=== PATIENT | male | born 1945 | race Caucasian/White ===

== ENCOUNTER 2024-08-01 07:16 | Emergency (ER) | payer MEDICARE, SELFPAY ==
[2024-08-01] VITALS (8 sets, daily range): BP systolic 138–171; BP diastolic 74–80; PULSE 74–84; RESP 10–17; TEMP 36.8; O2SAT 96–100
--- NOTE | ~2024-08-01 | XR_ITS ---
Portable chest x-ray Comparison: None Clinical History: Dizziness Findings: Lungs are clear, without focal consolidation or pleural effusion. Cardiomediastinal silho uette is unremarkable. Bones and soft tissues are unremarkable. Impression: Normal chest. Reviewed, dictated and finalized at location M. Impression: Normal chest.
--- NOTE | ~2024-08-01 | CT_ITS ---
Non-contrast Head CT History: Dizziness Technique: Axial non-contrast imaging of the brain was performed. Dose reduction technique was used on this scan by utilizing automated exposure control and iterative reconstruction technique. The dose -length product (DLP) was 681.00 mGy-cm. Findings: There is no evidence of intracranial hemorrhage, mass lesion, or acute infarct. Brain par enchyma appears normal. The ventricles and subarachnoid spaces are normal in size. The calvarium ap pears normal. The visualized paranasal sinuses and mastoid air cells are clear. Impression: No significant abnormality seen. Reviewed, dictated and finalized at location . Impression: No significant abnormality seen.
--- NOTE | 2024-08-01 07:20 | ED_ITS ---
HPI - General Adult General Chief complaint: Weakness Stated complaint: weakness, dizzy Time Seen by Provider: 08/01/24 07:19 Source: patient and EMS Mode of arrival: EMS Limitations: no limitations History of Present Illness HPI narrative: 79 years old white male lives alone came to the ED from home by ambulance because cutting get out of bed this morning because everything was spinning associated with nausea. Denied having similar symptoms. History of diabetes hypertension hyperlipidemia currently on baby aspirin once a day, does not smoke or drink or use drugs. Patient denies any fever, chills, chest pain, shortness of breath, or focal neuro deficit. Patient did not take his morning medicine prior to arrival Related Data Allergies Allergy/AdvReac Type Severity Reaction Status Date / Time No Known Allergies Allergy Verified 08/01/24 07:50 Review of Systems 2 Review of Systems: All systems reviewed & are unremarkable except as noted in HPI and below Exam 2 Narrative: General appearance: Well-developed, well-nourished Skin: Normal color Head: Normocephalic, nontraumatic Eyes: Clear conjunctiva ENT: Oropharynx normal, ears normal, nose normal Neck: Supple, nontender Chest and respiratory: Airway patent, no respiratory distress, no accessory muscle use Heart: Regular rate/rhythm Abdomen: Soft, nontender, no organomegaly, quiet bowel sounds Vascular: Normal peripheral pulses, normal capillary refill. Musculoskeletal: Normal range of motion, nontender back Neurologic: Alert and oriented ?3, [employer] is normal as tested, no gross motor deficit Course Vital Signs Vital signs: Vital Signs Temperature 36.8 C 08/01/24 07:22 Pulse Rate 81 08/01/24 07:22 Respiratory Rate 16 08/01/24 07:22 Blood Pressure 171/80 H 08/01/24 07:22 Pulse Oximetry 98 08/01/24 07:22 Oxygen Delivery Room Air 08/01/24 07:22 Temperature 36.8 C 08/01/24 07:22 Pulse Rate 80 08/01/24 10:01 Respiratory Rate 13 08/01/24 10:01 Blood Pressure 145/75 H 08/01/24 10:01 Pulse Oximetry 96 08/01/24 10:01 Oxygen Delivery Room Air 08/01/24 07:22 Medical Decision Making [facility] Narrative Medical decision making narrative: Patient workup with everything spends Vital signs showing blood pressure 171/80 otherwise within normal limit Physical examination is unremarkable Differential diagnosis includes benign positional vertigo, posterior circulation CVA, electrolyte imbalance, dehydration Blood workup today includes CBC CMP troponin no significant abnormalities CT head no significant abnormality Chest x-ray no acute abnormality Differential Diagnosis Differential Diagnosis: As above Vital Signs Vital Signs: Vital Signs Temperature 36.8 C 08/01/24 07:22 Pulse Rate 81 08/01/24 07:22 Respiratory Rate 16 08/01/24 07:22 Blood Pressure 171/80 H 08/01/24 07:22 Pulse Oximetry 98 08/01/24 07:22 Oxygen Delivery Room Air 08/01/24 07:22 Temperature 36.8 C 08/01/24 07:22 Pulse Rate 80 08/01/24 10:01 Respiratory Rate 13 08/01/24 10:01 Blood Pressure 145/75 H 08/01/24 10:01 Pulse Oximetry 96 08/01/24 10:01 Oxygen Delivery Room Air 08/01/24 07:22 Lab Data 08/01/24 07:40 08/01/24 07:40 Labs: Lab Results 08/01/24 08/01/24 Range/Units 07:40 08:58 WBC 9.3 (4.5-10.0) K/mm3 RBC 4.63 (4.6-6.20) M/mm3 Hgb 15.0 (14.0-18.0) g/dL Hct 46.9 (42.0-52.0) % MCV 101.3 H (80-100) fl MCH 32.4 (26-34) pg MCHC 32.0 (32-36) g/dl RDW 13.3 (11.5-14.5) % Plt Count 320 (150-375) k/mm3 MPV 9.7 (7.4-10.4) fl Immature Gran % (Auto) 0.3 (0-0.5) % Neut % (Auto) 59.4 (45.5-73.1) % Lymph % (Auto) 26.7 (18.3-44.2) % [place] % (Auto) 7.7 (2.6-8.5) % Eos % (Auto) 4.9 H (0-4.4) % Baso % (Auto) 1.0 (0.2-1.2) % Lymph # (Auto) 2.47 (0.9-3.2) K/mm3 [place] # (Auto) 0.7 H (0.1-0.6) K/mm3 Eos # (Auto) 0.5 H (0-0.3) K/mm3 Baso # (Auto) 0.1 (0.0-0.1) K/mm3 Abs Immat Gran (auto) 0.03 (0.00-0.031) K/mm3 Absolute Neuts (auto) 5.5 (1.3-6.7) K/mm3 Absolute Nucleated RBC 0.000 (0.0-0.012) K/mm3 Nucleated RBC % 0.0 (0.0-0.2) % PT 12.8 (11.1-14.7) Seconds INR 0.9 APTT 27.3 (22.3-36.8) Seconds Sodium 140 (137-145) mmol/L Potassium 4.0 (3.4-5.0) mmol/L Chloride 103 (98-107) mmol/L Carbon Dioxide 26 (22-30) mmol/L Anion Gap 11 (4-12) mmol/L BUN 19 (9-20) mg/dL Creatinine 1.21 (0.7-1.3) mg/dL Estim Creat Clear Calc 52 ml/min Estimated GFR 58 L (59 - ) Glucose 138 H (65-110) mg/dL POC Capillary Glucose 135 H (65-105) mg/dl Calcium 8.5 (8.4-10.2) mg/dL Total Bilirubin 1.0 (0.2-1.3) mg/dL AST 27 (17-59) U/L ALT 30 (6-50) U/L Alkaline Phosphatase 79 (38-126) U/L Troponin I 0.017 (0.000-0.034) ng/mL Total Protein 8.0 (6.3-8.2) g/dL Albumin 4.3 (3.5-5.1) g/dL Imaging Data Radiologist's impression: Impressions Head CT 08/01/24 08:07 Impression: No significant abnormality seen. Chest X-Ray 08/01/24 08:08 Impression: Normal chest. Critical Care Time Critical Care Time Critical Care Time: No Discharge Plan Discharge Clinical Impression: Benign paroxysmal positional vertigo Patient Disposition: Home Condition: Improved Instructions: Benign Paroxysmal Positional Vertigo (DC) Additional Instructions: Return if symptoms are worsening , call your family physician for appointment, take Tylenol as as needed for aches and pain, continue home medications. Avoid strenuous activity Sit down immediately if you have any dizziness. Patient Language: Tamazight Prescriptions: New meclizine [Antivert] 25 mg tablet,chewable 25 mg PO TID Qty: 20 0RF ondansetron HCl 4 mg tablet 4 mg PO Q4H Qty: 10 0RF Rx Instructions: 1st dose 1-2 hr before radiation Follow-up/Referrals: Chilo,Bharathi Galan MD [Primary Care Provider] -
--- NOTE | 2024-08-01 07:30 | ECG_ITS ---
Test Date: 2024-08-01 07:31:25 Measurements Intervals [place] Rate: 79 P: 176 [place]: 316 QRS: -10 QRSD: 92 T: 82 QT: 365 QTc: 420 Interpretive Statements SINUS RHYTHM WITH MARKED FIRST DEGREE AV BLOCK LOW QRS VOLTAGE IN PRECORDIAL LEADS CONSIDER ANTERIOR INFARCT, AGE INDETERMINATE BORDERLINE ST-T WAVE ABNORMALITY- LAT/HIGH LAT LEADS BASELINE ARTIFACT- I, II, AVR, AVL, AVF ABNORMAL ECG No previous ECG available for comparison Electronically Signed On 08-01-2024 09:24:02 CDT by Agapito Cruz D.O.
[2024-08-01 07:46] LABS: Basophils Absolute Auto 0.1 K/mm3 (0.0-0.1); Eosinophils Absolute Auto 0.5 K/mm3 (0-0.3); Eosinophils Percent Auto 4.9 % (0-4.4); Hematocrit 46.9 % (42.0-52.0); Immature Granulocyte Absolute 0.03 K/mm3 (0.00-0.031); Immature Granulocyte Percent A 0.3 % (0-0.5); Lymphocytes Absolute Auto 2.47 K/mm3 (0.9-3.2); Lymphocytes Percent Auto 26.7 % (18.3-44.2); Mean Corpuscular Hemoglobin 32.4 pg (26-34); Mean Corpuscular Volume 101.3 fl (80-100); Mean Platelet Volume 9.7 fl (7.4-10.4); Monocytes Absolute Auto 0.7 K/mm3 (0.1-0.6); Monocytes Percent Auto 7.7 % (2.6-8.5); Neutrophils Absolute Auto 5.5 K/mm3 (1.3-6.7); Neutrophils Percent Auto 59.4 % (45.5-73.1); Platelet Count Result 320 k/mm3 (150-375); Red Blood Count 4.63 M/mm3 (4.6-6.20); Red Cell Distribution Width 13.3 % (11.5-14.5); White Blood Count 9.3 K/mm3 (4.5-10.0)
[2024-08-01] MEDS: ONDANSETRON INJ 4 MG/2 ML VIAL IV PUSH (07:47)
[2024-08-01] MEDS: MECLIZINE HCL 25 MG TABLET PO (07:47)
[2024-08-01 07:57] LABS: Alanine Aminotransferase 30 U/L (6-50); Albumin Level 4.3 g/dL (3.5-5.1); Alkaline Phosphatase 79 U/L (38-126); Anion Gap 11 mmol/L (4-12); Aspartate Amino Transferase 27 U/L (17-59); Blood Urea Nitrogen 19 mg/dL (9-20); Calcium 8.5 mg/dL (8.4-10.2); Carbon Dioxide 26 mmol/L (22-30); Chloride 103 mmol/L (98-107); Estimated CRCL calculation 52 ml/min; Estimated Glomerular Filt Rate 58; Glucose 138 mg/dL (65-110); Sodium 140 mmol/L (137-145)
[2024-08-01 08:09] LABS: Troponin I 0.017 ng/mL (0.000-0.034)
--- OUTSIDE RECORDS SUMMARY | 2024-08-01 08:09 | XMS_ITS | Continuity of Care Document ---
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 Name Role Phone Valentine OD, Perry Unavailable Unavailable Procedures Procedure Date Office/outpatient Visit, Est Post-op Follow-up Visit Refraction Post-op Follow-up Visit Remove Cataract, Insert Lens Office/outpatient Visit, Est Echo Exam Of Eye Eye Exam & Treatment Eye Exam & Treatment Eye Exam & Treatment Refraction Advance Directives Directive Yes / No Effective Date File Name No Information Encounters Encounter Description Practice Location Reason(s) For Visit Diagnoses Date Provider Providers Copied on Encounter Office/outpat ient Visit, Est Merged with [facility], [address], [place], [place], [id number], [place] tel:[phone] [facility] [address] No Information 2-201 0 Valentine OD Perry. [address] , [address], [place], [address], [place]. tel:[phone] Merged with [facility], [address], [place], [place], [id number], [place] tel:[phone] [facility] No Information 0-200 9 Valentine OD Perry. [address], [address], [place], [address], [place]. tel:[phone] [facility], [address], [place], [place], [id number], [place] tel:[phone] [facility] No Information 6200 9 Lise Mendoza. [address] [facility] [facility] [address] , [address], [place], [place], [facility], [place]. tel:[phone] [facility], [address], [place], [place], [id number], [place] tel:[phone] [facility] No Information 200 9 Lise Mendoza. [facility], [facility] [facility] , [address], [place], [place], [facility], [place]. tel:[phone] Referring Provider: Perry Ryan, [facility] [address], [place], [place], [facility]. tel:[phone] Office/outpat ient Visit, [facility], [address], [place], [place], [id number], [place] tel:[phone] [facility] No Information 1200 9 Lise Mendoza. [address] [place], [place] [address] , [address], [place], [place], [facility], [place]. tel:[phone] Referring Provider: Reji Ryan, [facility] [address], [place], [place], [facility]. tel:[phone] [facility], [address], [place], [place], [id number], [place] tel:[phone] [facility] No Information 0 [phone] 9 Valentine OD Perry. [address] [place], [place] [address]ate [address] , [address], [place], [place], [facility], [place]. tel:[phone] [facility], [address], [place], [place], [id number], [place] tel:[phone] [facility] No Information 0-200 8 Valentine OD Perry. [address] , [address], [place], [address], [place]. tel:[phone] [facility], [address], [place], [place], [id number], tel:[phone] [facility] No Information 0-200 7 Valentine OD Perry. [address] , [address], [place], [address], [place]. tel:[phone] Family History Family Member Type Diagnosis Age At Onset No Information Payers Payer name Insurance type Covered democrat ID Authoriza tion(s) No Information Social History Type Description Quantity Date Captured Comments Sex Male Smoking Status No Information Chief Complaint And Reason For Visit No Information Reason For Referral Reason For Referral No Information History Of Present Illness Encounter Date Complaint History Of Prese nt Illness No Information Functional Status Date Functional Assessmen t No Information Instructions Date Instruction Additional Infor mation No Information Assessments Type Assessment Date No Information Patient Care Teams Name Effective Dates (start - stop) Status Members No Information
--- OUTSIDE RECORDS SUMMARY | 2024-08-01 08:09 | XMS_ITS | CONTINUITY OF CARE DOCUMENT ---
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
[2024-08-01 08:16] LABS: INR 0.9; Prothrombin Time 12.8 Seconds (11.1-14.7)
[2024-08-01 08:17] LABS: Partial Thromboplastin Time 27.3 Seconds (22.3-36.8)
[2024-08-01] MEDS: diazePAM (*CRX) 5 MG TABLET 2.5 MG PO (08:18)
[2024-08-01 09:01] LABS: Glucose Point of Care 135 mg/dl (65-105)
== END 2024-08-01 11:43 | disposition home or self-care (01) ==
PROVIDERS: Emergency Provider Emergency Medicine; PCP Internal Medicine
DX: H81.10 Benign paroxysmal vertigo, unspecified ear (principal); I10 Essential (primary) hypertension; E11.9 Type 2 diabetes mellitus without complications; E78.5 Hyperlipidemia, unspecified; Z79.82 Long term (current) use of aspirin
CPT/HCPCS: 36415; 70450; 71045; 80053; 82948; 84484; 85025; 85610; 85730; 93005; 96374; 99284; A9270; J2405